=== PATIENT | female | born 1980 | race Caucasian/White ===

== ENCOUNTER 2019-01-16 22:57 | Emergency (ER) | payer MEDICAID ==
[2019-01-16] MEDS ORDERED: 0.9 % SODIUM CHLORIDE 1,000 ML BAG IV ONE (23:02)
[2019-01-16] MEDS ORDERED: MORPHINE SULFATE 5 MG/ML VIAL IVP ONE ×2 (23:05→23:38)
[2019-01-16] MEDS ORDERED: ONDANSETRON HCL IV 4 MG/2 ML VIAL IVP ONE (23:05)
--- NOTE | 2019-01-16 23:11 | Emergency Department Record ---
History of Present Illness - General Chief Complaint: Pain Stated Complaint: PAIN AFTER POST OP Time Seen by Provider: 01/16/19 23:00 Source: Patient, Family Mode of Arrival: Ambulatory Limitations: No limitations - History of Present Illness Initial Comments: 38 yo female presents with chest pain and upper abdominal pain for the last 1.5 hours. She states the pain is sharp and severe and seems to come in waves. She reports she had gastric bypass surgery at [facility] about a month ago. She states the surgery was complicated by "blood clots". She was re-admitted to the hospital at that time and started on Lovenox and Coumdadin after diagnosis of PE on. The SO reports she was admitted a second time after failure initially on Eliquis. She reports she was then switched to Lovenox and Coumadin. The second admission was at [place]. Her pain worsened before she could get to [facility]. Dr Proctor is her doctor at [facility] for bariatric surgery. She reports she did well for 2-3 weeks prior to the last three days. She feels fatigued, no appetite, and eating less. On Saturday she induced vomit once as well. A small amount of fluid came up. No blood. She has only had one meal today. Normally she eats applesauce without issue but even that is making her feel poorly. She was at [facility] early morning with chest pain. She had labs including a negative D-dimer. She was discharged home. The patient was on her way to [facility] but the pain was too severe so they stopped at [facility]. No prior visits at [facility]. MD Complaint: Abdominal pain -: Hour(s) Location: Epigastric Radiation: Epigastric Migration to: Epigastric Severity: Severe Quality: Aching, Sharp, Stabbing Consistency: Constant Improves With: Nothing Worsens With: Movement Context: Recent surgery/procedure Associated Symptoms: Other - Related Data Home Medications Medication Instructions Recorded Confirmed Last Taken Gabapentin [Neurontin] 16 ml PO TID 01/17/19 01/17/19 Unknown Lorazepam 01/17/19 Unknown Meclizine HCl [Antivert] 25 mg PO TID 01/17/19 01/17/19 Unknown Ondansetron HCl [Zofran] 8 mg PO TID 01/17/19 01/17/19 Unknown Oxycodone HCl 10 mg PO QID 01/17/19 01/17/19 Unknown Warfarin Sodium 2 mg PO DAILY 01/17/19 01/17/19 Unknown Allergies Allergy/AdvReac Type Severity Reaction Status Date / Time bee pollen Allergy ANAPHYLAXIS Verified 01/16/19 23:19 ceftriaxone [From Rocephin] Allergy DIZZINESS Verified 01/16/19 23:19 Fish Containing Products Allergy ANAPHYLAXIS Verified 01/16/19 23:19 haloperidol [From Haldol] Allergy ALTERED Verified 01/16/19 23:19 MENTAL STATUS Iodinated Contrast Media Allergy ANAPHYLAXIS Verified 01/16/19 23:19 ketorolac [From Toradol] Allergy HIVES Verified 01/16/19 23:19 nitrofurantoin Allergy HIVES Verified 01/16/19 23:19 [From Macrobid] nut - unspecified Allergy ANAPHYLAXIS Verified 01/16/19 23:19 tramadol [From Ultram] Allergy HIVES Verified 01/16/19 23:19 Review of Systems Constitutional: Denies: Chills, Fever, Malaise, Weakness Eyes: Denies: Eye discharge ENT: Denies: Congestion, Throat pain Respiratory: Denies: Cough, Dyspnea, Hemoptysis, Wheezes Cardiovascular: Denies: Chest pain, Palpitations, Syncope Endocrine: Denies: Fatigue, Polydipsia, Polyuria Gastrointestinal: Reports: Abdominal pain, Nausea. Denies: Diarrhea, Vomiting Genitourinary: Denies: Dysuria, Urgency Musculoskeletal: Denies: Arthralgia, Back pain, Myalgia Skin: Denies: Bruising, Change in color, Rash Neurological: Denies: Headache Psychiatric: Denies: Anxiety Hematological/Lymphatic: Denies: Easy bleeding, Easy bruising Physical Exam - General General Appearance: Alert, Oriented x3, Cooperative, Mild distress (Due to pain) Limitations: No limitations - Head Head exam: Atraumatic, Normal inspection - Eye Eye exam: Normal appearance. negative: Conjunctival injection, Scleral icterus - ENT ENT exam: Normal exam, Mucous membranes moist Ear exam: Normal external inspection Nasal Exam: Normal inspection Mouth exam: Normal external inspection - Neck Neck exam: Normal inspection - Respiratory Respiratory exam: Normal lung sounds bilaterally. negative: Respiratory distres s - Cardiovascular Cardiovascular Exam: Regular rate, Normal rhythm, Normal heart sounds - GI/Abdominal GI/Abdominal exam: Soft, Tenderness (soft but mildly tender epigastrium). negative: Normal bowel sounds - Rectal Rectal exam: Deferred - exam: Deferred - Extremities Extremities exam: Normal inspection. negative: Pedal edema, Tenderness - Back Back exam: Denies: CVA tenderness (R), CVA tenderness (L) - Neurological Neurological exam: Alert, Oriented X3 - Psychiatric Psychiatric exam: Anxious - Skin Skin exam: Dry, Intact, Normal color, Warm Course - Reevaluation(s) Reevaluation #1: 01/16/19 23:09 EKG #1: 23:02 Rate: 73 Rhythm: sinus [place]: normal Intervals: normal ST segments: normal 01/16/19 23:11 No records of prior visit to [facility] in EMR 01/16/19 23:31 12 23:42 The CBC is normal The BMP is normal The lactic acid is normal 01/16/19 23:57 The Troponin is normal 01/17/19 00:03 INR is therapeutic at 2.2 01/17/19 00:[address] scan was reviewed. A few non specific small lymph nodes in the LUQ, could be secondary to mesenteric adenitis or occult infectious etiology. Given the clinical history and persistent pain [facility] Transfer Line was contacted 01/17/19 01:03 Dr Zarate of surgery accepts the patient for direct admit to evaluate for her ongoing pain, decreasing appetite, and discomfort with eating. He will directly admit the patient to the inpatient service 01/17/19 01:20 Medical Decision Making - Lab Data Result diagrams: 01/16/19 23:14 01/16/19 23:14 Lab Results 01/16/19 Range/Units 23:01 Lactic Acid Cancelled Disposition Disposition: Transfer Clinical Impression: H/O gastric bypass, Hx of pulmonary embolus Chest pain Qualifiers: Chest pain type: unspecified Qualified Code(s): R07.9 - Chest pain, unspecified Abdominal pain Qualifiers: Abdominal location: unspecified location Qualified Code(s): R10.9 - Unspecified abdominal pain Disposition: Acute Care Hospital Transfer Transfer To: [facility] Reason For Transfer: Chest pain, Abdominal Pain, G-Bypass Accepting Physician: Elliot Time Discussed w/Accepting Physician: 01:04 Condition: (2) Stable Forms: Patient Portal Access Time of Disposition: 01:04 Quality - Quality Measures Quality Measures: N/A - Blood Pressure Screening Does Patient Have Any of the Following: No Blood Pressure Classification: Normal BP Reading Systolic Measurement: 105 Diastolic Measurement: 62 Screening for High Blood Pressure: < Normal BP, F/U Not Required > [G8783] Pre-Hypertensive Follow-up Interventions: Referral to alternative/primary care provider.
[2019-01-16 23:25] LABS: ABSOLUTE NEUTROPHIL COUNT 4.83; BASO % 0.1 % (0-6); EOS % 1.5 % (0-6); GRAN % 51.1 % (47-80); HEMOGLOBIN 13.5 gm/dl (11.6-16.0); LYMPH % 38.4 % (16-45); MEAN CELL VOLUME 88.7 fl (81-97); MEAN CORPUSCULAR HEMOGLOBIN 27.8 pg (27-33); MEAN CORPUSCULAR HGB CONC 31.4 g/dl (32-36); MEAN PLATELET VOLUME 10.4 fl (7.4-10.4); MONO % 8.9 % (0-9); PLATELET COUNT 248 K/uL (130-400); RED BLOOD COUNT 4.85 M/uL (3.80-5.40); RED CELL DISTRIBUTION WIDTH 14.4 % (11.5-14.5); WHITE BLOOD COUNT W/O DIFF 9.5 K/uL (4.2-12.2)
[2019-01-16 23:36] LABS: BLOOD UREA NITROGEN 10 mg/dL (6-20); CREATININE 0.7 mg/dL (0.5-0.9); EST GLOMERULAR FILTRATION RATE > 60 mL/min
[2019-01-16 23:37] LABS: LIPASE 43 U/L (13-60); TOTAL PROTEIN 7.1 g/dL (6.6-8.7)
[2019-01-16 23:39] LABS: GLUCOSE,RANDOM 97 mg/dL (74-109)
[2019-01-16 23:41] LABS: ALT/SGPT 38 U/L (<33); AST/SGOT 43 U/L (10.0-35.0)
[2019-01-16 23:42] LABS: ALB/GLOB RATIO 1.3 (1.1-1.8); ALKALINE PHOSPHATASE 92 U/L (35-104)
[2019-01-16 23:54] LABS: INR 2.2; PARTIAL THROMBOPLASTIN TIME 30.3 SECONDS (24.5-39.1); PROTHROMBIN TIME (PATIENT) 22.1 SECONDS (9.5-12.1)
--- NOTE | 2019-01-17 00:24 | CT SCAN REPORT ---
EXAMINATION: CT Abdomen and Pelvis without IV Contrast EXAM DATE: 01/17/2019 12:08 AM TECHNIQUE: Standard protocol CT imaging of the abdomen and pelvis was performed without intravenous c ontrast. INDICATION: gastric bypass epigastric pain COMPARISON: None ENCOUNTER: Not applicable CT ABDOMEN AND PELVIS FINDINGS: Lung Bases: Included extent of the lung bases are clear. Hepatobiliary: The liver has a normal size with a smooth surface. The gallbladder is absent. There is no biliary dilatation. Pancreas: The pancreas is normal. Spleen: The spleen is not enlarged. Adrenals: The adrenal glands are normal. Kidneys, Ureters, & Bladder: Both kidneys have a normal size and morphology. There is no hydronephro sis. No renal calculi are present. Both ureters have a normal course and caliber and the urinary blad eilzabeth a normal morphology and uniform wall thickness. No ureteral or bladder calculi are identified. Gastrointestinal: Status post gastric bypass surgery. The stomach and small bowel appears otherwise n ormal with no obstruction or inflammation. The appendix is not identified. The large bowel is within normal limits. Reproductive Organs: Unremarkable Lymphatic System: There are a few nonspecific small lymph nodes in the mesentery of the left upper ab domen. No other abnormal lymph nodes are seen. Vasculature: Normal caliber abdominal aorta Peritoneum: No free fluid, free air, or inflammation Abdominal wall & Musculoskeletal: No suspicious bone lesions. Assessment of the solid organs, soft tissues, and vascular structures is overall limited on noncontra st imaging, IMPRESSION: 1. A few nonspecific small mesenteric lymph nodes in the left upper quadrant could be secondary to a mesenteric adenitis or occult infectious etiology. Please correlate clinically and follow-up as elliot cueto. Dictated by: Megan Flowers MD on 01/17/2019 12:08 AM. .
[2019-01-17] MEDS ORDERED: ACETAMINOPHEN 1,000 MG/100 ML BTL IVPB ONE (00:44)
[2019-01-17] MEDS ORDERED: MORPHINE SULFATE 5 MG/ML VIAL IVP ONE (02:11)
== END 2019-01-17 02:25 | disposition short-term general hospital (02) ==
LOC: ER 22:57
DX: R07.9 Chest pain, unspecified (principal); R10.13 Epigastric pain; R53.83 Other fatigue; Z86.711 Personal history of pulmonary embolism; Z79.01 Long term (current) use of anticoagulants; Z98.84 Bariatric surgery status
CPT/HCPCS: 99285 ×2; 96376; 96374; 96375; 83605; 83690; 85025; 85730; 85610; 80053; 84484; 74176; 93005; 93010; J2405; J7030

== ENCOUNTER 2019-03-07 15:23 | Emergency (ER) | payer MEDICAID ==
--- NOTE | 2019-03-07 15:52 | Emergency Department Record ---
History of Present Illness - General Chief Complaint: Headache Migraine Stated Complaint: DOMINGUEZ Time Seen by Provider: 03/07/19 15:47 Source: Patient Mode of Arrival: Wheelchair - History of Present Illness Initial Comments: migraine headache started today adn she took immetrix ,zofran and fiouecet and norco. She sees a pain DR in [place] Dr Calix who gives her the norco and she shes that Dr monthly. She had gastric bipass dec 02 at [facility] in [place] and her primary is Dr. Blackwell in [place] and she is on coumadin for PE and DVT's and sees a blood Dr at [facility] and she nauseated no vomiting. MD Complaint: "Migraine" Onset/Timin -: Hour(s) Onset Description: Awoke with symptoms Severity: Severe Severity scale (1-10): 10 Improves With: Nothing Associated Symptoms: Nausea, Photophobia, Sensitivity to sound Other Symptoms: Chest pain - Symptoms of Stroke Onset of Symptoms Date: 03/07/19 Onset of Symptoms Time: 07:30 Symptoms of stroke: Dizziness - Related Data Home Medications Medication Instructions Recorded Confirmed Last Taken Hydrocodone/Acetaminophen [Young Harris 1 tab PO 03/07/19 Unknown 10-325 Tablet] Omeprazole 40 mg PO DAILY 03/07/19 03/07/19 Unknown Allergies Allergy/AdvReac Type Severity Reaction Status Date / Time bee pollen Allergy ANAPHYLAXIS Verified 03/07/19 15:56 ceftriaxone [From Rocephin] Allergy DIZZINESS Verified 03/07/19 15:56 Fish Containing Products Allergy ANAPHYLAXIS Verified 03/07/19 15:56 haloperidol [From Haldol] Allergy ALTERED Verified 03/07/19 15:56 MENTAL STATUS Iodinated Contrast Media Allergy ANAPHYLAXIS Verified 03/07/19 15:56 ketorolac [From Toradol] Allergy HIVES Verified 03/07/19 15:56 nitrofurantoin Allergy HIVES Verified 03/07/19 15:56 [From Macrobid] nut - unspecified Allergy ANAPHYLAXIS Verified 03/07/19 15:56 tramadol [From Ultram] Allergy HIVES Verified 03/07/19 15:56 Travel Screening - Travel/Exposure Within Last 30 Days Have you traveled within the last 30 days?: No - Travel/Exposure Within Last Year Have you traveled outside the [place] in the last year?: No - Additonal Travel Details Have you been exposed to anyone with a communicable illness?: No - Travel Symptoms Symptom Screening: None Review of Systems Reviewed: No additional complaints except as noted below Constitutional: Reports: As per HPI. Denies: Chills, Fever, Malaise, Night sweats, Weakness, Weight change Eyes: Reports: As per HPI. Denies: Eye discharge, Eye pain, Photophobia, Vision change ENT: Reports: As per HPI. Denies: Congestion, Dental pain, Ear pain, Epistaxis, Hearing loss, Throat pain Respiratory: Reports: As per HPI. Denies: Cough, Dyspnea, Hemoptysis, Stridor, Wheezes Cardiovascular: Reports: As per HPI. Denies: Arrhythmia, Chest pain, Dyspnea on exertion, Edema, Murmurs, Orthopnea, Palpitations, Paroxysmal nocturnal dyspnea, Rheumatic Fever, Syncope Endocrine: Reports: As per HPI. Denies: Fatigue, Heat or cold intolerance, Polydipsia, Polyuria Gastrointestinal: Reports: As per HPI, Nausea. Denies: Abdominal pain, Constipation, Diarrhea, Hematemesis, Hematochezia, Melena, Vomiting Genitourinary: Reports: As per HPI. Denies: Abnormal menses, Discharge, Dyspareunia, Dysuria, Frequency, Hematuria, Incontinence, Retention, Urgency Musculoskeletal: Reports: As per HPI. Denies: Arthralgia, Back pain, Gout, Joint swelling, Myalgia, Neck pain Skin: Reports: As per HPI. Denies: Bruising, Change in color, Change in hair/nails, Lesions, Pruritus, Rash Neurological: Reports: As per HPI, Headache. Denies: Abnormal gait, Confusion, Numbness, Paresthesias, Seizure, Tingling, Tremors, Vertigo, Weakness Psychiatric: Reports: As per HPI. Denies: Anxiety, Auditory hallucinations, Depression, Homicidal thoughts, Suicidal thoughts, Visual hallucinations Hematological/Lymphatic: Reports: As per HPI. 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 negative: External canal tenderness Nasal Exam: Normal inspection. negative: Discharge, Sinus tenderness Mouth exam: Normal external inspection, Tongue normal Teeth exam: Normal inspection. negative: Dental caries Throat exam: Normal inspection. negative: Tonsillar erythema, Tonsillar exudate - Neck Neck exam: Normal inspection, Full ROM. negative: Tenderness - Respiratory Respiratory exam: Normal lung sounds bilaterally. negative: Respiratory distress - Cardiovascular Cardiovascular Exam: Regular rate, Normal rhythm, Normal heart sounds - GI/Abdominal GI/Abdominal exam: Soft, Normal bowel sounds. negative: Tenderness - Rectal Rectal exam: Deferred - exam: Deferred - Extremities Extremities exam: Normal inspection, Full ROM, Normal capillary refill. negative: Tenderness - Back Back exam: Reports: Normal inspection, Full ROM. Denies: Muscle spasm, Rash noted, Tenderness - Neurological Neurological exam: Alert, Normal gait, Oriented X3, Reflexes normal - Psychiatric Psychiatric exam: Normal affect, Normal mood - Skin Skin exam: Dry, Intact, Normal color, Warm Course Vital Signs 03/07/19 15:28 Temperature 98.2 F Pulse Rate 68 Respiratory 16 Rate Blood Pressure 121/59 Pulse Ox 98 - Reevaluation(s) Reevaluation #1: headache is some better and I don't feel comfortable giving any more pain meds. 03/07/19 18:06 Medical Decision Making - Lab Data Result diagrams: 03/07/19 17:00 03/07/19 17:00 Disposition Clinical Impression: Migraine Qualifiers: Migraine type: unspecified Status migrainosus presence: without status migrainosus Intractability: not intractable Qualified Code(s): G43.909 - Migraine, unspecified, not intractable, without status migrainosus Disposition: Home, Self-Care Condition: (2) Stable Instructions: Migraine Headache (ED) Additional Instructions: follow up with family Dr and Pain Dr in 2-3 days Forms: Patient Portal Access Time of Disposition: 18:07 Quality - Quality Measures Quality Measures: N/A - Blood Pressure Screening Does Patient Have Any of the Following: No Blood Pressure Classification: Pre-Hypertensive BP Reading Systolic Measurement: 121 Diastolic Measurement: 59 Screening for High Blood Pressure: < Pre-Hypertensive BP, F/U Documented > [G8950] Pre-Hypertensive Follow-up Interventions: Referral to alternative/primary care provider.
[2019-03-07] MEDS ORDERED: 0.9 % SODIUM CHLORIDE 1,000 ML BAG IV ONE (16:11)
[2019-03-07] MEDS ORDERED: ONDANSETRON HCL IV 4 MG/2 ML VIAL IV ONE (16:11)
[2019-03-07] MEDS ORDERED: DIPHENHYDRAMINE HCL 50 MG/ML VIAL IVP ONE (16:12)
[2019-03-07] MEDS ORDERED: PROMETHAZINE HCL 25 MG in 0.9 % SODIUM CHLORIDE 100ML 100 ML IVPB ONE (16:12)
[2019-03-07 16:50] LABS: URINE APPEARANCE SL CLOUDY; URINE BILIRUBIN NEGATIVE (NEGATIVE); URINE BLOOD NEGATIVE (NEGATIVE); URINE COLOR YELLOW; URINE GLUCOSE (UA) NEGATIVE (NEGATIVE); URINE KETONE 40 mg/dL (NEGATIVE); URINE LEUKOCYTE ESTERASE NEGATIVE (NEGATIVE); URINE NITRITE NEGATIVE (NEGATIVE); URINE PROTEIN NEGATIVE (NEGATIVE); URINE UROBILINOGEN 0.2 E.U./dL (0.20 - 1.00)
[2019-03-07] MEDS ORDERED: MORPHINE SULFATE 5 MG/ML VIAL IVP ONE (17:13)
[2019-03-07 17:14] LABS: ABSOLUTE NEUTROPHIL COUNT 3.23; BASO % 0.2 % (0-6); EOS % 2.9 % (0-6); GRAN % 54.5 % (47-80); HEMATOCRIT 40.5 % (35.0-47.0); HEMOGLOBIN 12.7 gm/dl (11.6-16.0); LYMPH % 33.1 % (16-45); MEAN CORPUSCULAR HEMOGLOBIN 27.6 pg (27-33); MEAN CORPUSCULAR HGB CONC 31.4 g/dl (32-36); MEAN PLATELET VOLUME 9.7 fl (7.4-10.4); MONO % 9.3 % (0-9); PLATELET COUNT 255 K/uL (130-400); RED CELL DISTRIBUTION WIDTH 15.2 % (11.5-14.5); WHITE BLOOD COUNT W/O DIFF 5.9 K/uL (4.2-12.2)
[2019-03-07 17:20] LABS: BLOOD UREA NITROGEN 7 mg/dL (6-20); CREATININE 0.6 mg/dL (0.5-0.9); EST GLOMERULAR FILTRATION RATE > 60 mL/min
[2019-03-07 17:23] LABS: GLUCOSE,RANDOM 107 mg/dL (74-109); INR 2.2; PROTHROMBIN TIME (PATIENT) 21.4 SECONDS (9.5-12.1)
== END 2019-03-07 18:35 | disposition home or self-care (01) ==
LOC: ER 15:23
DX: G43.909 Migraine, unspecified, not intractable, without status migrainosus (principal); R11.0 Nausea; H53.149 Visual discomfort, unspecified; R07.9 Chest pain, unspecified; Z98.84 Bariatric surgery status; Z86.711 Personal history of pulmonary embolism; Z79.01 Long term (current) use of anticoagulants; Z86.718 Personal history of other venous thrombosis and embolism
CPT/HCPCS: 80048; 81003; 81025; 85025; 85610; 96374; 96375; 99284; J1200; J2405; J2550; J7030

== ENCOUNTER 2019-04-16 14:06 | Emergency (ER) | payer MEDICAID ==
[2019-04-16] MEDS ORDERED: 0.9 % SODIUM CHLORIDE 1,000 ML BAG IV ONE (14:33)
[2019-04-16] MEDS ORDERED: ACETAMINOPHEN 1,000 MG/100 ML BTL IVPB ONE (14:34)
[2019-04-16] MEDS ORDERED: METHYLPREDNISOLONE PF 125MG/VIAL IVP ONE (14:34)
[2019-04-16] MEDS ORDERED: DIPHENHYDRAMINE HCL 50 MG/ML VIAL IVP ONE ×2 (14:34→15:15)
--- NOTE | 2019-04-16 14:39 | Emergency Department Record ---
History of Present Illness - General Chief Complaint: Abdominal Pain Stated Complaint: ABD PAIN Time Seen by Provider: 04/16/19 14:22 Source: Patient Mode of Arrival: Ambulatory Limitations: No limitations - History of Present Illness Initial Comments: The patient is here due to an 18 hour hx of abdominal pain. The pain is in the RUQ and LUQ and is aching. The RUQ pain is constant and the LUQ pain seems to come and go. The patient is nauseated but has not vomited. She also denies any diarrhea, fever, chills, back pain, CP or SOB. She does have a hx of Gastric Bypass in Dec at [facility] by Dr. Proctor and also has had her GB removed. She states post surgery she had complications of a PE and now is on Coumadin. The patient is allergic to IV dye but is able to receive it after Benadryl and Solumedrol. MD Complaint: Abdominal pain Onset/Timin -: Days(s) Location: RUQ Radiation: LLQ Severity: Moderate Severity scale (1-10): 8 Quality: Burning, Sharp Consistency: Constant Improves With: Nothing Worsens With: Nothing Associated Symptoms: Nausea - Related Data Patient : No Allergies Allergy/AdvReac Type Severity Reaction Status Date / Time bee pollen Allergy ANAPHYLAXIS Verified 03/07/19 15:56 ceftriaxone [From Rocephin] Allergy DIZZINESS Verified 03/07/19 15:56 Fish Containing Products Allergy ANAPHYLAXIS Verified 03/07/19 15:56 haloperidol [From Haldol] Allergy ALTERED Verified 03/07/19 15:56 MENTAL STATUS Iodinated Contrast Media Allergy ANAPHYLAXIS Verified 03/07/19 15:56 ketorolac [From Toradol] Allergy HIVES Verified 03/07/19 15:56 nitrofurantoin Allergy HIVES Verified 03/07/19 15:56 [From Macrobid] nut - unspecified Allergy ANAPHYLAXIS Verified 03/07/19 15:56 tramadol [From Ultram] Allergy HIVES Verified 03/07/19 15:56 Travel/Exposure Screening - Travel/Exposure Within Last 30 Days Have you traveled within the last 30 days?: No - Additonal Travel/Exposure Details Have you been exposed to anyone with a communicable illness?: No Review of Systems Constitutional: Denies: Chills, Fever Eyes: Denies: Eye discharge ENT: Denies: Congestion Respiratory: Denies: Cough, Dyspnea Cardiovascular: Denies: Chest pain Endocrine: Denies: Fatigue Gastrointestinal: Reports: Abdominal pain, Nausea. 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 negative: Tonsillar erythema, Tonsillar exudate - Neck Neck exam: Normal inspection, Full ROM. negative: Tenderness - Respiratory Respiratory exam: Normal lung sounds bilaterally. negative: Respiratory distress - Cardiovascular Cardiovascular Exam: Regular rate, Normal rhythm, Normal heart sounds - GI/Abdominal GI/Abdominal exam: Soft, Normal bowel sounds, Tenderness (There is diffuse upper abdominal tenderness.). negative: Distended, Guarding, Rebound, Rigid - Extremities Extremities exam: Normal inspection, Full ROM, Normal capillary refill. negative: Tenderness - Back Back exam: Reports: Normal inspection - Neurological Neurological exam: Alert, Normal gait. negative: Abnormal gait, Motor sensory deficit - Psychiatric Psychiatric exam: negative: Anxious Course Vital Signs 04/16/19 14:15 Temperature 98.6 F Pulse Rate 71 Respiratory 20 Rate Blood Pressure 109/57 Pulse Ox 98 - Reevaluation(s) Reevaluation #1: The patient is resting comfortably and appears to be in no distress. She is still complaining of pain but does not exhibit any signs of discomfort. I did discuss the normal lab work and CT and the need to see her surgeon ericaorrow. She is to continue her home pain medicines and call him for an appointment. She is to return to the ER for any worsening issues. 04/16/19 16:50 Medical Decision Making - Data Complexity MDM Data: Labs Ordered and/or Reviewed (All labs WNL's.), X-Ray Ordered and/or Reviewed - Lab Data Result diagrams: 04/16/19 14:50 04/16/19 14:50 - Radiology Data Radiology results: Report reviewed (CT: Neg for any acute process.) Disposition Disposition: Discharge Clinical Impression: Abdominal pain Qualifiers: Abdominal location: unspecified location Qualified Code(s): R10.9 - Unspecified abdominal pain Disposition: Home, Self-Care Condition: (2) Stable Instructions: Abdominal Pain (ED) Additional Instructions: PLease continue your regular medicines and take a double dose of the Coumadin today. Please see your surgeon tomorrow for recheck. Also please have your INR rechecked on Saturday. Return to the ER for any worsening issues. Forms: Patient Portal Access Time of Disposition: 16:52 Quality - Quality Measures Quality Measures: N/A - Blood Pressure Screening View Details: Yes Does Patient Have Any of the Following: No Blood Pressure Classification: Normal BP Reading Systolic Measurement: 109 Diastolic Measurement: 57 Screening for High Blood Pressure: < Normal BP, F/U Not Required > [G8783] Pre-Hypertensive Follow-up Interventions: Referral to alternative/primary care provider.
[2019-04-16 15:04] LABS: ABSOLUTE NEUTROPHIL COUNT 2.96; BASO % 0.2 % (0-6); EOS % 2.9 % (0-6); GRAN % 54.4 % (47-80); HEMATOCRIT 38.3 % (35.0-47.0); LYMPH % 34.1 % (16-45); MEAN CELL VOLUME 88.7 fl (81-97); MEAN CORPUSCULAR HEMOGLOBIN 27.8 pg (27-33); MEAN CORPUSCULAR HGB CONC 31.3 g/dl (32-36); MEAN PLATELET VOLUME 9.7 fl (7.4-10.4); MONO % 8.4 % (0-9); PLATELET COUNT 230 K/uL (130-400); RED BLOOD COUNT 4.32 M/uL (3.80-5.40); RED CELL DISTRIBUTION WIDTH 14.9 % (11.5-14.5); WHITE BLOOD COUNT W/O DIFF 5.5 K/uL (4.2-12.2)
[2019-04-16 15:15] LABS: BLOOD UREA NITROGEN 8 mg/dL (6-20); CREATININE 0.7 mg/dL (0.5-0.9); EST GLOMERULAR FILTRATION RATE > 60 mL/min
[2019-04-16 15:16] LABS: LIPASE 18 U/L (13-60); TOTAL PROTEIN 6.3 g/dL (6.6-8.7)
[2019-04-16 15:18] LABS: GLUCOSE,RANDOM 108 mg/dL (74-109)
[2019-04-16 15:20] LABS: ALT/SGPT 19 U/L (<33); AST/SGOT 15 U/L (10.0-35.0)
[2019-04-16 15:21] LABS: ALBUMIN 3.5 g/dL (4.0-5.0); ALKALINE PHOSPHATASE 83 U/L (35-104)
[2019-04-16 15:24] LABS: BILIRUBIN,DIRECT < 0.2 mg/dL (0-0.3); INR 1.7; PARTIAL THROMBOPLASTIN TIME 30.1 SECONDS (24.5-39.1); PROTHROMBIN TIME (PATIENT) 16.8 SECONDS (9.5-12.1)
[2019-04-16] MEDS ORDERED: MORPHINE SULFATE 5 MG/ML VIAL IVP ONE (15:38)
--- NOTE | 2019-04-16 16:44 | CT SCAN REPORT ---
EXAMINATION: CT Abdomen and Pelvis with IV Contrast EXAM DATE: 04/16/2019 4:26 PM TECHNIQUE: CT imaging of the abdomen and pelvis was performed with intravenous contrast. Coronal and sagittal images were reconstructed. IV Contrast: The amount and type of contrast are recorded in the medical record. INDICATION: AP COMPARISON: CT abdomen and pelvis January 16, 2019 ENCOUNTER: Not applicable CT ABDOMEN AND PELVIS FINDINGS: Lung Bases: Included extent of the lung bases are clear. Hepatobiliary: The liver has a normal size with a smooth surface. The hepatic and portal veins appear patent. Gallbladder surgically absent. Pancreas: The pancreas is normal. Spleen: Spleen measures 15.4 cm in length which is at the upper limits of normal. Adrenals: The adrenal glands are normal. Kidneys, Ureters, & Bladder: Both kidneys have a normal size and there is no hydronephrosis. Both ur eters have a normal caliber and the urinary bladder is unremarkable. Delayed images through the kidne ys show symmetric bilateral renal excretion. Gastrointestinal: Redemonstration postsurgical change of the stomach. Small bowel is not obstructed. Appendix is not identified. Large bowel appears to be within normal limits. Reproductive Organs: Uterus is present. Lymphatic System: There is no adenopathy within the abdomen or pelvis. Vasculature: Normal caliber abdominal aorta. Peritoneum: No free fluid, free air, or inflammation Abdominal Wall & Musculoskeletal: No suspicious bone lesions. IMPRESSION: No acute findings within the abdomen or pelvis. Nonobstructed bowel. No hydronephrosis. Additional findings as detailed above Dictated by: Raisa Carney MD on 04/16/2019 4:30 PM. .
--- NOTE | 2019-04-16 17:07 | Emergency Department Record ---
History of Present Illness - General Chief Complaint: Abdominal Pain Stated Complaint: ABD PAIN Time Seen by Provider: 04/16/19 14:22 Source: Patient Mode of Arrival: Ambulatory Limitations: No limitations - History of Present Illness MD Complaint: Abdominal pain Onset/Timin -: Days(s) Location: RUQ Radiation: LLQ Severity: Moderate Severity scale (1-10): 8 Quality: Burning, Sharp Consistency: Constant Improves With: Nothing Worsens With: Nothing Associated Symptoms: Nausea - Related Data Patient : No Allergies Allergy/AdvReac Type Severity Reaction Status Date / Time bee pollen Allergy ANAPHYLAXIS Verified 03/07/19 15:56 ceftriaxone [From Rocephin] Allergy DIZZINESS Verified 03/07/19 15:56 Fish Containing Products Allergy ANAPHYLAXIS Verified 03/07/19 15:56 haloperidol [From Haldol] Allergy ALTERED Verified 03/07/19 15:56 MENTAL STATUS Iodinated Contrast Media Allergy ANAPHYLAXIS Verified 03/07/19 15:56 ketorolac [From Toradol] Allergy HIVES Verified 03/07/19 15:56 nitrofurantoin Allergy HIVES Verified 03/07/19 15:56 [From Macrobid] nut - unspecified Allergy ANAPHYLAXIS Verified 03/07/19 15:56 tramadol [From Ultram] Allergy HIVES Verified 03/07/19 15:56 Travel/Exposure Screening - Travel/Exposure Within Last 30 Days Have you traveled within the last 30 days?: No - Additonal Travel/Exposure Details Have you been exposed to anyone with a communicable illness?: No Review of Systems Constitutional: Denies: Chills, Fever Eyes: Denies: Eye discharge ENT: Denies: Congestion Respiratory: Denies: Cough, Dyspnea Cardiovascular: Denies: Chest pain Endocrine: Denies: Fatigue Gastrointestinal: Reports: Abdominal pain, Nausea. Denies: Diarrhea, Vomiting Genitourinary: Denies: Dysuria Musculoskeletal: Denies: Arthralgia Neurological: Denies: Abnormal gait Past Medical History - SOCIAL HISTORY Smoking Status: Never smoker - RESPIRATORY Hx Respiratory Disorders: No - CARDIOVASCULAR Hx Cardio Disorders: Yes Hx Abnormal EKG: Yes Hx Cardiac Cath: Yes - NEURO Hx Neuro Disorders: Yes Hx Dizziness: Yes Hx Neuropathy: Yes - GI Hx GI Disorders: Yes Hx Reflux: Yes Comment:: gastric bypass - Hx Genitourinary Disorders: Yes Hx UTI: Yes - ENDOCRINE Hx Endocrine Disorders: No - MUSCULOSKELETAL Hx Musculoskeletal Disorders: Yes Hx Back Injury: Yes ([employer] lifting) - PSYCH Hx Psych Problems: No - HEMATOLOGY/ONCOLOGY Hx Hematology/Oncology Disorders: No Hx Clotting Problems: Yes (on coumadin since surgery) Family Medical History Any Significant Family History?: No Physical Exam - General Limitations: No limitations Course Vital Signs 04/16/19 04/16/19 14:15 16:28 Temperature 98.6 F 99.0 F Pulse Rate 71 Pulse Rate [ 55 L Pulse Ox Probe] Respiratory 20 18 Rate Blood Pressure 109/57 Blood Pressure 93/59 [Left Arm] Pulse Ox 98 97 - Reevaluation(s) Reevaluation #1: Addendum to recheck exam prior to discharge: The patient's abdomen was very soft and nontender in all 4 quads. She is up walking without any issues or signs of discomfort. 04/16/19 17:06 Medical Decision Making - Lab Data Result diagrams: 04/16/19 14:50 04/16/19 14:50 Lab Results 04/16/19 04/16/19 04/16/19 Range/Units 14:50 14:50 14:50 WBC 5.5 (4.2-12.2) K/uL RBC 4.32 (3.80-5.40) M/uL Hgb 12.0 (11.6-16.0) gm/dl Hct 38.3 (35.0-47.0) % MCV 88.7 (81-97) fl MCH 27.8 (27-33) pg MCHC 31.3 L (32-36) g/dl RDW 14.9 H (11.5-14.5) % Plt Count 230 (130-400) K/uL MPV 9.7 (7.4-10.4) fl Gran % 54.4 (47-80) % Lymphocytes % 34.1 (16-45) % Monocytes % 8.4 (0-9) % Eosinophils % 2.9 (0-6) % Basophils % 0.2 (0-6) % Absolute Neutrophils 2.96 PT (9.5-12.1) SECONDS INR APTT (24.5-39.1) SECONDS Sodium 141 (136-145) mmol/L Potassium 3.7 (3.4-4.5) mmol/L Chloride 107 (98-107) mmol/L Carbon Dioxide 26.0 (22-29) mmol/L Anion Gap 8.0 (7-16) BUN 8 (6-20) mg/dL Creatinine 0.7 (0.5-0.9) mg/dL Estimated GFR > 60 mL/min Random Glucose 108 (74-109) mg/dL Lactic Acid (0.5-2.2) mmol/L Calcium 9.1 (8.6-10.0) mg/dL Total Bilirubin 0.40 (0.2-1.0) mg/dL Direct Bilirubin < 0.2 (0-0.3) mg/dL AST 15 (10.0-35.0) U/L ALT 19 (<33) U/L Alkaline Phosphatase 83 (35-104) U/L Total Protein 6.3 L (6.6-8.7) g/dL Albumin 3.5 L (4.0-5.0) g/dL Lipase 18 (13-60) U/L Serum HCG, Qual Negative (NEGATIVE) 04/16/19 04/16/19 Range/Units 14:50 14:50 WBC (4.2-12.2) K/uL RBC (3.80-5.40) M/uL Hgb (11.6-16.0) gm/dl Hct (35.0-47.0) % MCV (81-97) fl MCH (27-33) pg MCHC (32-36) g/dl RDW (11.5-14.5) % Plt Count (130-400) K/uL MPV (7.4-10.4) fl Gran % (47-80) % Lymphocytes % (16-45) % Monocytes % (0-9) % Eosinophils % (0-6) % Basophils % (0-6) % Absolute Neutrophils PT 16.8 H (9.5-12.1) SECONDS INR 1.7 APTT 30.1 (24.5-39.1) SECONDS Sodium (136-145) mmol/L Potassium (3.4-4.5) mmol/L Chloride (98-107) mmol/L Carbon Dioxide (22-29) mmol/L Anion Gap (7-16) BUN (6-20) mg/dL Creatinine (0.5-0.9) mg/dL Estimated GFR mL/min Random Glucose (74-109) mg/dL Lactic Acid 1.3 (0.5-2.2) mmol/L Calcium (8.6-10.0) mg/dL Total Bilirubin (0.2-1.0) mg/dL Direct Bilirubin (0-0.3) mg/dL AST (10.0-35.0) U/L ALT (<33) U/L Alkaline Phosphatase (35-104) U/L Total Protein (6.6-8.7) g/dL Albumin (4.0-5.0) g/dL Lipase (13-60) U/L Serum HCG, Qual (NEGATIVE) Disposition Clinical Impression: Abdominal pain Qualifiers: Abdominal location: unspecified location Qualified Code(s): R10.9 - Unspecified abdominal pain Disposition: Home, Self-Care Condition: (2) Stable Instructions: Abdominal Pain (ED) Additional Instructions: PLease continue your regular medicines and take a double dose of the Coumadin today. Please see your surgeon tomorrow for recheck. Also please have your INR rechecked on Saturday. Return to the ER for any worsening issues. Forms: Patient Portal Access Quality - Quality Measures Quality Measures: N/A - Blood Pressure Screening View Details: Yes Does Patient Have Any of the Following: No Blood Pressure Classification: Normal BP Reading Systolic Measurement: 109 Diastolic Measurement: 57 Screening for High Blood Pressure: < Normal BP, F/U Not Required > [G8783]
== END 2019-04-16 16:55 | disposition home or self-care (01) ==
LOC: ER 14:06
DX: R10.84 Generalized abdominal pain (principal); R11.0 Nausea; Z98.84 Bariatric surgery status; Z86.711 Personal history of pulmonary embolism; Z79.01 Long term (current) use of anticoagulants
CPT/HCPCS: 99284 ×2; 96376; 96374; 96375; 83605; 83690; 85025; 85730; 85610; 80076; 80048; 84703; 74177; Q9967; J1200; J2930; J7030